=== PATIENT | female | born 1980 | race Caucasian/White ===

== ENCOUNTER 2022-03-04 23:23 | Emergency (ER) | payer MEDICAID, SELFPAY ==
[2022-03-04 23:25] VITALS: BP 165/89; PULSE 86; RESP 15; TEMP 36.2; O2SAT 96; BMI 29.6
[2022-03-04 23:27] VITALS: BP 165/89; PULSE 86; RESP 15; TEMP 36.2; O2SAT 96
--- NOTE | 2022-03-05 00:14 | ED.VIS.DENTA ---
HPI History of Present Illness Chief Complaint: Dental Informant: patient Onset/Context/Timing Onset: Days (3-4) Context: Gradual Onset Timing: Continuous Quality: ache/throb Location: L maxillary dentition Current Severity: Severe Maximum Severity: Severe Worsened by: palpation, eating Relieved by: - (nothing) Associated Symptoms Assocated Symptom - Dental: Negative for fever, jaw swelling or face swelling Narrative Narrative: Patient has been having a toothache for several days, tonight she states she bent over and felt a pop in one of the areas, left molar, all of the pain has been left maxillary. She states she had a foul taste in her mouth when this happened, she thought maybe an abscess burst but the pain got worse and not better. She denies any swelling or fevers or chills. PFSH PFSH no medical history Home Medications clindamycin HCl 150 mg capsule 300 mg PO 4X/DAY #80 CAPSULES 03/05/22 [Rx Last Taken Unknown] hydrocodone-acetaminophen 5-325mg 5mg-325mg 1 tab PO Q6H PRN PRN Pain 3 days #12 TABLETS 03/05/22 [Rx Last Taken Unknown] Allergy/AdvReac Type Severity Reaction Status Date / Time morphine Allergy Anaphylaxis Verified 03/04/22 23:24 Penicillins [PCN] Allergy Hives Verified 03/04/22 23:24 Sulfa (Sulfonamide Allergy Hives Verified 03/04/22 23:24 Antibiotics) tramadol Allergy Hives Verified 03/04/22 23:24 Social History Smoking Status: Current every day smoker tobacco type: cigarettes ROS ROS ED Constitutional Constitutional ED: Denies chills or fever(s) Eyes Eyes: Denies change in vision or double vision ENT ENT ED: Reports dental pain; Denies sinus pain or throat swelling Cardiovascular Cardiovascular: Denies chest pain or palpitations Respiratory/Chest Respiratory/Chest: Denies cough or dyspnea Integumentary Denies abscess or rash Neurologic Neurologic: Denies headache(s), paresthesias or weakness EXAM Physical Exam Const Vital Signs: 03/04/22 23:25 03/04/22 23:27 03/05/22 00:20 Temperature 97.2 F L 97.2 F L Temperature Source Temporal Temporal Pulse Rate 86 86 62 Respiratory Rate 15 15 15 Blood Pressure 165/89 H 165/89 H 124/77 H Blood Pressure Mean 114 114 Pulse Ox 96 96 98 Oxygen Delivery Method Room Air Room Air Positive well nourished and well developed General Appearance ED: well developed and NAD HEENT HEENT Narrative: Patient has very poor dentition, there are 2 severely decayed teeth in the left maxillary row, one of them is tooth #14 and the other 1 is tooth #12. Tooth #14 is in pieces, the pieces are in place in the gingiva/socket, but they are loose/mobile and very tender to touch and move. There is no gingival abnormality, there is no bleeding, no purulent discharge, no abscess, no trismus, and no tenderness elsewhere other than those 2 teeth. Normal tongue, normal sublingual area. No stridor. Normal voice. Face and Sinus: sinuses nontender Throat: posterior oropharynx normal Eyes PERRL and EOMs intact bilaterally Neck no lymphadenopathy and supple Resp normal respiratory effort Neuro oriented x3 and CN's II-XII intact bilaterally Sensorium / Orientation: alert Gait (Neuro): normal gait Psych mental status grossly normal and thought process normal Skin no rashes or lesions noted and no wounds MDM MDM MDM Narrative Medical decision making narrative: Patient will be prescribed analgesics and antibiotics, she is allergic to penicillin so will be prescribed clindamycin and started on a tonight, she drove so she is given a dose of NSAID and given a prescription that we will fill prior to her leaving for [place], Her OARRS report is negative for the past 2 years. Placed on clindamycin and advised to follow-up with dentistry soon as possible. Discharge Plan Triage Chief Complaint: Dental ED Provider: Bert Caldwell Dx/Rx/DC Orders Clinical Impression: Odontalgia, Dental decay Instructions: ED Dental Cavity Prescriptions: New hydrocodone-acetaminophen [hydrocodone-acetaminophen] 5-325 mg tablet 1 tab PO Q6H PRN PRN (Reason: Pain) 3 Days Qty: 12 0RF clindamycin HCl 150 mg capsule 300 mg PO 4X/DAY Qty: 80 0RF Primary Care Provider: Care Physician,No Primary Referrals: Care Physician,No Primary [Primary Care Provider] - Dentist,Your [STAFF PHYSICIAN] - As soon as possible Disposition Disposition: Home, Self Care Discharge Date/Time: 03/05/22 00:21
[2022-03-05] MEDS: Naproxen 250 MG Tablet 500 MG PO (00:17)
[2022-03-05] MEDS: Clindamycin HCl 150 MG Capsule 300 MG PO (00:17)
[2022-03-05 00:20] VITALS: BP 124/77; PULSE 62; RESP 15; O2SAT 98
== END 2022-03-05 00:21 | disposition home or self-care (01) ==
PROVIDERS: Emergency Provider Emergency Medicine; Visit Provider Emergency Medicine
DX: K08.89 Other specified disorders of teeth and supporting structures (principal); K02.9 Dental caries, unspecified; Z88.0 Allergy status to penicillin; F17.210 Nicotine dependence, cigarettes, uncomplicated
CPT/HCPCS: 99283